=== PATIENT | female | born 1960 | race Caucasian/White ===

== ENCOUNTER → 2016-08-29 | Outpatient (CLI) | payer BC ==
[~2016-08-29] MED LIST: CITALOPRAM HBR10 MG PO; PHENERGAN25 M1 PO; ROBAXIN 750750 MG PO; TENORMIN25 M1; TENORMIN25 MG PO
--- NOTE | ~2016-08-29 | MR113 ---
[facility] A Service of [facility] RADIOLOGY TEXT RESULTS PATIENT: NAYANA FERNANDEZ LOCATION: [facility] : 60 UNIT #: [id number] AGE: [address]: Brenton Laguna MD SEX: F ORDER DR: [id number] [facility] [address] [place], [place] [address] [id number] MR#: [id number] Acc #: [id number] NAME: NAYANA FERNANDEZ : 1960 SEX: F STUDY DATE/TIME: 08/29/2016 16:09 UNIT: [facility] ROOM: STUDY DESCRIPTION: MR Lumbar Wo Contrast Attending Physician: Brenton Laguna M.D. Referring Physician: Brenton Laguna M.D. Ordering Physician: Brenton Laguna M.D. Primary Care Physician: Brenton Laguna M.D. [facility] REPORT This report is preliminary unless electronic signature is present. EXAM MRI of the lumbar spine without contrast HISTORY 56-year-old female low back pain times 8 months pain since at [facility] Strained his back right leg gives out. FINDINGS Multiplanar multiecho imaging was performed of the lumbar spine utilizing a high field magnet dedicated protocol. Normal spinal alignment. Lumbar vertebral marrow signal appears normal. Normal termination of the conus. The L1-2 through L5-S1 disc levels demonstrates normal disc signal. No focal disc protrusion or herniations. No spinal or foraminal stenosis. There is mild bilateral L4-5 facet arthropathy and mild bilateral L3-4 facet arthropathy. Paraspinal soft tissues unremarkable. IMPRESSION Mild bilateral L3-4 and L4-5 facet arthropathy. Dictated by... Moises Joya M.D. THIS IS AN ELECTRONICALLY VERIFIED REPORT Moises Joya M.D. at 08/29/2016 10:34 PM HOMER/iliana TD: 08/29/2016 18:55 JOB #: [id number] [facility] REPORT Page 1 of 1 COPY
== END | disposition home or self-care (01) ==
LOC: CMRI 15:40
DX: M54.10 Radiculopathy, site unspecified (principal); M46.96 Unspecified inflammatory spondylopathy, lumbar region
CPT/HCPCS: 72148